=== PATIENT | female | born 2000 | race Two or more races ===

== ENCOUNTER 2025-09-22 06:39 | Emergency (ER) | payer OTHER ==
[~2025-09-22] VITALS: Ht 154.9 cm; Wt 70.8 kg
--- NOTE | 2025-09-22 07:02 | ED.PDOC ---
DETAIL SERGEANT HPI Comments A 25 YEAR OLD FEMALE PRESENTS TO THE ED WITH COMPLAINT OF VAGINAL BLEEDING. PATIENT REPORTS THAT SHE WOKE UP THIS MORNING WITH SUPRAPUBIC ABDOMINAL CRAMPING AND ASSOCIATED VAGINAL BLEEDING WITH CLOTS NOTED. PATIENT RELAYS THAT SHE HAD A SPONTANEOUS OCCUR AT 12 WEEKS ON 09/12, BEING SEEN AT ANOTHER HOSPITAL AT THE TIME. PATIENT STATES THAT SHE HAD ABDOMINAL PAIN AND VAGINAL BLEEDING AT THE TIME, BUT IT WAS MILDER THAN IT IS TODAY. PATIENT NOTES SHE WAS NOT GIVEN ANY MEDICATION TO SPEED UP HER MISCARRIAGE AT THE TIME. PATIENT DENIES FEVER, CHILLS, SHORTNESS OF BREATH, CHEST PAIN, NAUSEA, VOMITING, HEADACHE, OR OTHER COMPLAINTS. NO OTHER SYMPTOMS OR MODIFYING FACTORS AT THIS TIME. PATIENT IS ALERT, ORIENTED X 4, AND HAS STEADY GAIT. Chief Complaint: Vaginal Bleed Time Seen by MD: 06:59 Reviewed Notes: Nurses Notes, Medications, Allergies Allergies: Coded Allergies: NO KNOWN ALLERGIES (Unverified , 09/22/25) Home Meds Active Scripts Doxycycline (Monohydrate) (Doxycycline) 100 Mg Cap, 100 MG PO BID, #20 CAP Prov:AMY FLOR 09/22/25 Naproxen (Naproxen) 500 Mg Tab, 500 MG PO BID, #30 TAB Prov:AMY FLOR 09/22/25 Information Source: Patient, Spouse Mode of Arrival: Ambulatory Timing: Hours Prehospital treatment: None Severity: Moderate Bleeding Quality: Bright Red, Clotted Onset Of Mass/Bleeding: Spontaneous Sexual Activity: Neither Control: None Associated Signs and Symptoms: Vaginal Bleeding, Cramping Past Medical History PAST MEDICAL HISTORY: Denies Surgical History: Denies all surgeries DRAY DRIVER History: Spontaneous Family History Family History: Reviewed,noncontributory to illness Social History Smoker: Non-Smoker Alcohol: Denies ETOH Use Drugs: Denies Drug Use Lives In: Home Constitutional: denies: chills, diaphoresis, fatigue, fever, malaise, sweats, weakness, others EENTM: denies: blurred vision, double vision, ear bleeding, ear discharge, ear drainage, ear pain, ear ringing, eye pain, eye redness, hearing loss, mouth pain, mouth swelling, nasal discharge, nose bleeding, nose congestion, nose pain, photophobia, tearing, throat pain, throat swelling, voice changes, others Respiratory: denies: cough, hemoptysis, orthopnea, SOB at rest, shortness of breath, SOB with excertion, stridor, wheezing, others Cardiovascular: denies: chest pain, dizzy spells, diaphoresis, Dyspnea on exe rtion, edema, irregular heart beat, left arm pain, lightheadedness, palpitations, PND, syncope, others Gastrointestinal: denies: abdomen distended, abdominal pain, blood streaked bowels, constipated, diarrhea, dysphagia, difficulty swallowing, hematemesis, melena, nausea, poor appetite, poor fluid intake, rectal bleeding, rectal pain, vomiting, others Genitourinary: reports: abnormal vagina bleeding, pain; denies: burning, dyspareunia, dysuria, flank pain, frequency, hematuria, incontinence, , vagina discharge, urgency, others Neurological: denies: dizziness, fainting, headache, left sided numbness, left sided weakness, numbness, paresthesia, pre-existing deficit, right sided numbness, right sided weakness, seizure, speech problems, tingling, tremors, weakness, others Musculoskeletal: denies: back pain, gout, joint pain, joint swelling, muscle pain, muscle stiffness, neck pain, others Integumetry: denies: bruises, change in color, change in hair/nails, dryness, laceration, lesions, lumps, rash, wounds, others Allergic/Immunocompromised: denies: Difficulty Healing, Frequent Infections, Hives, Itching, others Hematologic/Lymphatic: denies: anemia, blood clots, easy bleeding, easy bruisin g, swollen glands, others Endocrine: denies: excessive hunger, excessive sweating, excessive thirst, excessive urination, flushing, intolerance to cold, intolerance to heat, unexplained weight gain, unexplained weight loss, others Psychiatric: denies: anxiety, bipolar disorder, depression, hopeless, panic disorder, schizophrenia, sleepless, suicidal, others All Other Systems: Reviewed and Negative Physical Exam General Appearance: No Apparent Distress, Normal HEENT: Normal ENT Inspection, PERRL/EOMI, Pharynx Normal Neck: Full Range of Motion, Non-Tender, Normal, Normal Inspection Respiratory: Chest Non-Tender, Lungs Clear, No Accessory Muscle Use, No Respiratory Distress, Normal Breath Sounds Cardiovascular: No Edema, No JVD, No Murmur, No Gallop, Normal Peripheral Pulses, Regular Rate/Rhythm Breast Exam: Deferred Gastrointestinal: No Organomegaly, Non Tender, No Pulsatile Mass, Normal Bowel Sounds, Soft Genitalia: Deferred Pelvic: Normal External Exam, Vaginal Bleeding (MILD VAGINAL BLEEDING AND BLOOD CLOTS, + TISSUE SEEN WITH PELVIC EXAM. ) Rectal: Deferred Extremities: No calf tenderness, Normal capillary refill, Normal inspection, Normal range of motion, Non-tender, No pedal edema Musculoskeletal : Apperance: Normal Neurologic: Alert, patient registration representative II-XII nml as Tested, No Motor Deficits, Normal Affect, Normal Mood, No Sensory Deficits Cerebellar Function: Normal Reflexes: Normal Skin: Dry, Normal Color, Warm Peripheral Pulses: 2+ carotid (R), 2+ carotid (L) Lymphatic: No Adenopathy Was a procedure done? Was a procedure done?: No Pelvic Exam Vaginal Discharge: None Vaginal Lesions: None Vaginal Mass: None Bleeding Quality: Bright Red, Products of Conception Cervix: os closed Notes PELVIC EXAMINATION WITH SPECULUM. MILD VAGINAL BLEEDING WITH BLOOD CLOTS NOTED ALONG WITH A PIECE OF TISSUE REMOVED FROM ANTERIOR CERVICAL REGION. TISSUE SENT TO LAB. Differential Diagnosis (DRAY DRIVER) Vaginal Bleeding: - Complete, - Incomplete Vaginal Discharge: UTI X-Ray, Labs, Meds, VS Vital Signs Date Time Temp Pulse Resp B/P (MAP) Pulse Ox O2 Delivery O2 Flow Rate FiO2 09/22/25 09:21 98.0 73 18 109/65 (80) 96 98.0 09/22/25 06:41 98.8 99 20 123/77 100 98.8 Lab Test 09/22/25 07:40 09/22/25 07:03 Range/Units Urine Color Pending Urine Clarity Pending Urine pH Pending Urine Specific [place] Pending Urine Protein Pending Urine Ketones Pending Urine Blood Pending Urine Nitrite Pending Urine Bilirubin Pending Urine Urobilinogen Pending Urine Leukocyte Esterase Pending Urine RBC 0 - 4 /hpf Urine Microscopic WBC Pending Urine Squamous Epithelial Cells <5 /hpf Urine Bacteria None Seen /hpf Urine Glucose Pending White Blood Count 6.5 4.4-10.8 10^3/uL Red Blood Count 4.95 4.0-5.20 10^6/uL Hemoglobin 15.2 12.2-16.2 g/dL Hematocrit 44.9 36.0-46.0 % Mean Corpuscular Volume 90.7 80.0-100.0 fL Mean Corpuscular Hemoglobin 30.7 28.0-32.0 pg Mean Corpuscular Hemoglobin Concent 33.9 32.0-36.0 g/dL Red Cell Distribution Width 13.7 11.8-14.3 % Platelet Count 225 140-450 10^3/uL Mean Platelet Volume 9.6 6.9-10.8 fL Neutrophils (%) (Auto) 63.7 37.0-80.0 % Lymphocytes (%) (Auto) 24.1 10.0-50.0 % Monocytes (%) (Auto) 9.7 0.0-12.0 % Eosinophils (%) (Auto) 2.0 0.0-7.0 % Basophils (%) (Auto) 0.5 0.0-2.0 % Neutrophils # (Auto) 4.2 1.6-8.6 10 ^3/uL Lymphocytes # (Auto) 1.6 0.4-5.4 10 ^3/uL Monocytes # (Auto) 0.6 0-1.3 10 ^3/uL Eosinophils # (Auto) 0.1 0-0.8 10 ^3/uL Basophils # (Auto) 0 0-0.2 10 ^3/uL Nucleated Red Blood Cells 0.1 % Sodium Level 139 136-145 mmol/L Potassium Level 3.9 3.5-5.1 mmol/L Chloride Level 105 98-107 mmol/L Carbon Dioxide Level 23 20-31 mmol/L Anion Gap 11 5-15 Blood Urea Nitrogen 7 L 9-23 mg/dL Creatinine 0.59 0.550-1.02 mg/dL Glomerular Filtration Rate Calc 130 >90 mL/min BUN/Creatinine Ratio 11.9 10.0-20.0 Serum Glucose 108 H 74-106 mg/dL Calcium Level 9.3 8.7-10.4 mg/dL Beta HCG, Quantitative 161.9 H 1.5-4.2 mIU/mL [facility] [id number] [place] [id number] Ph: [phone] DIAGNOSTIC IMAGING Diagnostic Imaging Report : [id number] Signed PATIENT: MICHAEL WHARTONCCT: [id number] UNIT: [id number] : 2000 LOC: ER ROOM / BED: / AGE / SEX: 25 / F ADM STATUS: REG ER SERVICE [id number] ORDERING PHYSICIAN: AMY FLOR PROCEDURE(s): OB4US - OB ULTRASOUND COMP LESS 14WKS REASON: VAGINAL BLEEDING, PASSED TISSUE POST ORDER NUMBER(s): [id number], ACCESSION NUMBER(s): [id number] CLINICAL HISTORY: VAGINAL BLEEDING, PASSED TISSUE POST TECHNIQUE: Ultrasound examination of the female pelvis was performed transabdominally. Transvaginal ultrasound was performed to more optimally assess the endometrial cavity. COMPARISON: None FINDINGS: TRANSABDOMINAL IMAGING: The bladder is grossly unremarkable. Endovaginal imaging was thereafter performed for better depiction of the anatomy. ENDOVAGINAL IMAGING: The uterus measures 9.1 x 6.1 x 5.8 CM. The myometrial echotexture is homogenous. No focal myometrial abnormality is seen. The endometrial lining is thickened, measuring 20 mm. There is no abnormal vascularity within the stripe. No IUP or sac-like structure is seen. The right ovary measures 2.8 x 1.5 x 2.0 cm. The left ovary measures 2.5 x 1.2 x 1.9 cm. Normal color doppler flow and vascular waveforms. There is trace nonspecific free fluid in the pelvis. IMPRESSION: No IUP/sac-like structure. Given history, findings are favored to represent interval . Other possibilities including a nonvisualized IUP can not be excluded. Recommend correlation with serial beta hCG level and follow-up ultrasound exams as clinically indicated. ATED BY: ADELINA AMBROSE MD DICTATED DATE/TIME: 09/22/25905 SIGNED BY: ADELINA AMBROSE MD SIGNED DATE/TIME: 09/22/25905 CC: X-Ray, Labs, Meds, VS Comment EXTERNAL MEDICAL RECORDS REVIEWED: [NONE] INDEPENDENT HISTORIANS: [NONE] SOCIAL DETERMINANTS OF HEALTH: [NONE] LABS ORDERED: CBC, BHCG QUANT, BMP, UA REVIEWED AND INTERPRETED RESULTS: OB US IMAGING ORDERED: OB US TREATMENTS ORDERED: NONE PROCEDURES PERFORMED: PELVIC EXAM PERFORMED, LARGE TISSUE REMOVED. CRITICAL CARE TIME: NONE I HAVE DISCUSSED THE PATIENT WITH THE ATTENDING PHYSICIAN DR. ACEVEDO AND HE AGREES WITH THE PATIENT'S PLAN OF CARE AND DISPOSITION. BASED ON HISTORY OF PRESENT ILLNESS, AND PHYSICAL EXAM, PATIENT WILL BE DISCHARGED HOME. DISCUSSED PLAN FOR DISCHARGE HOME WITH RX [NAPROSYN AND DOXYCYCLINE]. MEDICATION WARNINGS GIVEN. SHARED DECISION MAKING: DISCUSSED WITH PATIENT THAT THEIR WORKUP WAS NORMAL. PATIENT INSTRUCTED TO FOLLOW UP WITH PRIMARY CARE PROVIDER IN 1-2 DAYS FOR RE- EVALUATION OF SYMPTOMS. PATIENT VERBALIZES UNDERSTANDING TO RETURN TO ED FOR NEW OR WORSENING SYMPTOMS OR IF FOLLOW UP WITH PCP CANNOT BE OBTAINED. PATIENT FEELS COMFORTABLE GOING HOME AT THIS TIME. ALL QUESTIONS ADDRESSED AT TIME OF DISCHARGE. Time of 1ST Reevaluation: 09:30 Reevaluation 1ST: Improved Patient Education/Counseling: Diagnosis, Treatment, Need For Follow Up Family Education/Counseling: Diagnosis, Treatment, Need For Follow Up Medical Screening: No EMC Exist At This Time Departure 1 Departure Time of Disposition: : Impression: Primary Impression: Vaginal bleeding Additional Impression: Spontaneous Disposition: HOME / SELF CARE / HOMELESS Condition: Stable Additional Instructions: FOLLOW-UP WITH PCP IN 1 TO 2 DAYS. TAKE MEDICATIONS PRESCRIBED. RETURN TO ED FOR ANY NEW OR WORSENING SYMPTOMS. e-Prescriptions Doxycycline (Monohydrate) (Doxycycline) 100 Mg Cap 100 MG PO BID, #20 CAP Prov: AMY FLOR 09/22/25 Naproxen (Naproxen) 500 Mg Tab 500 MG PO BID, #30 TAB Prov: AMY FLOR 09/22/25 Discharged With: Self, Spouse Critical Care Note Critical Care Time?: No Stability Stability form required: No Heart Score Heart Score: Heart Score Response (Comments) Value History N/A 0 EKG N/A 0 Age N/A 0 Risk Factors N/A 0 Troponin N/A 0 Total 0 I personally scribed for AMY FLOR ([email or web address]) on 09/22/25 at 07:02. Electronically submitted by James Macias ([email or web address]). I personally scribed for AMY FLOR ([email or web address]) on 09/22/25 at 07:29. Electronically submitted by James Macias ([email or web address]). I personally scribed for AMY FLOR ([email or web address]) on 09/22/25 at 09:06. Electronically submitted by James Macias ([email or web address]). I personally scribed for AMY FLOR ([email or web address]) on 09/22/25 at 09:19. Electronically submitted by James Macias ([email or web address]). AMY FLOR Sep 22, 2025 07:02
[2025-09-22 07:18] LABS: Hematocrit 44.9 % (36.0-46.0); Hemoglobin 15.2 g/dL (12.2-16.2); Mean Corpuscular Hemoglobin 30.7 pg (28.0-32.0); Mean Corpuscular Volume 90.7 fL (80.0-100.0); Nucleated Red Blood Cells % 0.1 %
[2025-09-22 07:19] LABS: Chloride 105 mmol/L (98-107); Potassium 3.9 mmol/L (3.5-5.1); Sodium 139 mmol/L (136-145)
[2025-09-22 07:20] LABS: Anion Gap 11 (5-15); Carbon Dioxide 23 mmol/L (20-31)
[2025-09-22 07:21] LABS: Calcium 9.3 mg/dL (8.7-10.4)
[2025-09-22 07:26] LABS: BUN/Creatinine Ratio 11.9 (10.0-20.0)
[2025-09-22 07:30] LABS: Blood Urea Nitrogen 7 mg/dL (9-23); Glucose 108 mg/dL (74-106)
--- NOTE | 2025-09-22 09:09 | DVH ---
CLINICAL HISTORY: VAGINAL BLEEDING, PASSED TISSUE POST TECHNIQUE: Ultrasound examination of the female pelvis was performed transabdominally. Transvaginal ultrasound was performed to more optimally assess the endometrial cavity. COMPARISON: None FINDINGS: TRANSABDOMINAL IMAGING: The bladder is grossly unremarkable. Endovaginal imaging was thereafter performed for better depiction of the anatomy. ENDOVAGINAL IMAGING: The uterus measures 9.1 x 6.1 x 5.8 CM. The myometrial echotexture is homogenous. No focal myometrial abnormality is seen. The endometrial lining is thickened, measuring 20 mm. There is no abnormal vascularity within the stripe. No IUP or sac-like structure is seen. The right ovary measures 2.8 x 1.5 x 2.0 cm. The left ovary measures 2.5 x 1.2 x 1.9 cm. Normal color doppler flow and vascular waveforms. There is trace nonspecific free fluid in the pelvis. IMPRESSION: No IUP/sac-like structure. Given history, findings are favored to represent interval . Other possibilities including a nonvisualized IUP can not be excluded. Recommend correlation with serial beta hCG level and follow-up ultrasound exams as clinically indicated.
[2025-09-22 09:21] VITALS: BP 109/65; PULSE 73; RESP 18; TEMP 98; O2SAT 96
[2025-09-22] MEDS ORDERED: NAPR-746 PO (09:35)
[2025-09-22] MEDS ORDERED: DOXY1CAP58 PO (09:35)
== END 2025-09-22 09:40 | disposition home or self-care (01) ==
LOC: ER 06:39
DX: O03.9 Complete or unspecified spontaneous abortion without complication (principal); Z3A.01 Less than 8 weeks gestation of pregnancy; Z79.899 Other long term (current) drug therapy
CPT/HCPCS: 36415; 76801; 80048; 84702; 85025